=== PATIENT | female | born 1990 | race Caucasian/White ===

== ENCOUNTER 2016-11-05 16:46 | Emergency (ER) | payer BC, OTHER ==
[2016-11-05] MEDS ORDERED: ONDANSETRON 4MG OD TAB PO ONE (17:00)
--- NOTE | 2016-11-05 17:47 | EMERGENCY ROOM VISIT NOTE ---
History Report prepared by Alannah: Yusra Horne Under the Supervision of: Dr. Jose Branham M.D. First contact with patient: 16:50 Stated Complaint: ALCOHOL OVERDOSE History of Present Illness The patient is a 24 year old female who presents to the Emergency Room with complaints of an episode of alcohol intoxication occurring prior to arrival. Per the father in law, the patient had a lot to drink today and not a lot to eat. He states his son found her passed out in the bathroom, but believes she may have passed out more. The [id number] denies the patient falling and any health history. History limited secondary to alcohol intoxication. Source of History: family Onset: prior to arrival Position: other (global) Quality: other (global) Timing: other (episode) Review of Systems ROS unattainable secondary to alcohol intoxication. Past Medical & Surgical Medical Problems: (1) No Known Active Medical Problems Family History No pertinent family history Social History Alcohol Use: occasionally Marital Status: Housing Status: lives with significant other Current/Historical Medications No Active Prescriptions or Reported Meds Allergies Coded Allergies: No Known Allergies (Unverified , 11/05/16) Physical Exam Vital Signs Date Time Temp Pulse Resp B/P (MAP) Pulse Ox O2 Delivery O2 Flow Rate FiO2 11/05/16 21:31 36.8 117 12 124/72 97 11/05/16 20:36 95 9 98 11/05/16 20:31 102 18 97 11/05/16 20:30 108/28 11/05/16 20:26 74 14 96 11/05/16 20:21 75 15 96 11/05/16 20:16 75 15 96 11/05/16 20:11 83 15 95 11/05/16 20:06 91 14 95 11/05/16 20:01 98 5 98 11/05/16 20:00 101/74 11/05/16 19:56 85 14 95 11/05/16 19:51 75 14 98 11/05/16 19:46 87 14 99 11/05/16 19:41 94 13 99 11/05/16 19:36 81 13 100 11/05/16 19:31 97 15 99 11/05/16 19:30 97/68 11/05/16 19:26 85 16 95 11/05/16 19:21 85 16 95 11/05/16 19:16 76 14 95 11/05/16 19:11 87 15 96 11/05/16 19:06 96 15 99 11/05/16 19:01 96 16 97 11/05/16 19:00 151/94 11/05/16 18:56 106 16 99 11/05/16 18:51 92 15 96 11/05/16 18:46 90 24 98 11/05/16 18:41 88 16 99 11/05/16 18:36 99 18 94 11/05/16 18:31 85 30 98 11/05/16 18:30 134/87 11/05/16 18:26 68 14 95 11/05/16 18:21 89 16 96 11/05/16 18:16 84 16 98 11/05/16 18:11 92 17 64 11/05/16 18:06 102 14 100 11/05/16 18:03 97 20 138/112 99 Room Air 11/05/16 18:01 106 24 138/112 100 11/05/16 17:56 99 21 99 11/05/16 17:51 129 24 90 11/05/16 17:46 106 22 100 11/05/16 17:42 97 18 121/86 99 Room Air 11/05/16 17:41 125 34 98 11/05/16 17:36 97 16 100 11/05/16 17:31 98 14 100 11/05/16 17:30 121/86 11/05/16 17:26 71 21 99 11/05/16 17:21 91 22 99 11/05/16 17:16 94 10 98 11/05/16 17:11 108 12 98 11/05/16 17:07 69 11/05/16 17:07 36.8 102 16 121/81 98 Room Air 11/05/16 17:06 84 6 96 11/05/16 17:01 121/81 Physical Exam GENERAL: Patient is in no acute distress. Smells of alcohol. Covered in vomitus. HEENT: No acute trauma, normocephalic atraumatic, mucous membranes moist, no nasal congestion, no scleral icterus. Pupils equal and reactive to light. No obvious head trauma. NECK: No stridor, no adenopathy, no meningismus, trachea is midline. LUNGS: Clear to auscultation bilaterally, no wheeze, no rhonchi, breath sounds equal. HEART: Without murmurs gallops or rubs, regular rate and rhythm. ABDOMEN: Soft, nontender, bowel sounds positive, no hernias, no peritonitis. EXTREMITIES: No cyanosis or edema, full range of motion of all the joints without pain or difficulty, no signs for acute trauma. NEUROLOGIC: Significantly intoxicated with alcohol, no acute motor or sensory deficits, no focal weakness. SKIN: No rash, no jaundice, no diaphoresis. Medical Decision & Procedures Laboratory Results 11/05/16 17:38 Test 11/05/16 17:38 Anion Gap 10.0 mmol/L (3-11) Estimated GFR () 117.0 Estimated GFR (Non- 100.9 BUN/Creatinine Ratio 13.6 (10-20) Calcium Level 8.9 mg/dl (8.5-10.1) Human Chorionic Gonadotropin, Qual NEG (NEG) Ethyl Alcohol mg/dL 268.0 mg/dl (0-3) Laboratory results reviewed by me. Medications Administered Medications (Trade) Dose Ordered Sig/Fauzia Route Start Time Stop Time Status Last Admin Dose Admin Ondansetron HCl (Zofran Odt) 4 mg ONE ONCE PO 11/05/16 17:00 11/05/16 17:01 DC 11/05/16 17:23 4 MG ED Course 1651: The patient was evaluated in room B4A. A complete history and physical exam was performed. 1700: Ordered Zofran Odt 4 mg PO. 2108: Reevaluated the patient. Discussed results and discharge instructions: she verbalized understanding and agreement. The patient is ready for discharge. Medical Decision Differential diagnoses include head trauma, alcohol or drug abuse, dehydration, vomiting, alcohol overdose, aspiration. The patient presents with an alcohol overdose. No trauma reported. She had been vomiting. Alcohol level is around 260, consistent with her history. No significant electrolyte abnormality or kidney failure, testing is negative. The patient was watched in the emergency room on the cardiac and pulse ox monitor. She was given oral Zofran to prevent further nausea and vomiting. Her alcohol was allowed to clear with time. Now that she is more awake and alert, she can be discharged. Her history is consistent with an alcohol overdose. Impression Primary Impression: Alcohol overdose Additional Impression: Vomiting Scribe Attestation The scribe's documentation has been prepared under my direction and personally reviewed by me in its entirety. I confirm that the note above accurately reflects all work, treatment, procedures, and medical decision making performed by me. Departure Information Dispostion Home / Self-Care Prescriptions No Active Prescriptions or Reported Meds Forms HOME CARE DOCUMENTATION FORM, IMPORTANT VISIT INFORMATION Additional Instructions rest fluids do not use alcohol in excess tylenol for pain return if worsening alcohol level today was 260, 3x the legal limit to drive Problem Qualifiers
[2016-11-05 18:18] LABS: BLOOD UREA NITROGEN 11 mg/dl (7-18); BUN/CREATININE RATIO 13.6 (10-20); CALCIUM 8.9 mg/dl (8.5-10.1); CARBON DIOXIDE 25 mmol/L (21-32); CHLORIDE 104 mmol/L (98-107); CREATININE 0.81 mg/dl (0.60-1.20); GLUCOSE 96 mg/dl (70-99); POTASSIUM 3.7 mmol/L (3.5-5.1); SODIUM 139 mmol/L (136-145)
[2016-11-05 18:36] LABS: PREG INTERNAL NEGATIVE QC NEG CLEAR BACKGROUND; PREG INTERNAL POSITIVE QC POS CONTROL LINE
[2016-11-05 21:31] VITALS: BP 124/72; PULSE 117; TEMP 36.8; O2SAT 97
== END 2016-11-05 21:32 | disposition home or self-care (01) ==
LOC: EDBD → C.EDB 16:49
DX: F10.129 Alcohol abuse with intoxication, unspecified (principal); R11.10 Vomiting, unspecified